=== PATIENT | female | born 1995 | race Caucasian/White ===

== ENCOUNTER 2018-02-03 06:35 | Inpatient (IN) | payer MEDICAID ==
[2018-02-03] MEDS ORDERED: OXYTOCIN 30 UNITS/LR 500 ML IV ×2 (08:00→12:03)
[2018-02-03] MEDS ORDERED: CEFAZOLIN 2 GM/50 ML (PMX) 50 ML IVPB (08:00)
[2018-02-03] MEDS ORDERED: CARBOPROST 250 MCG INJ IM (08:00)
[2018-02-03] MEDS ORDERED: METHYLERGONOVINE 0.2 MG INJ IM (08:00)
[2018-02-03] MEDS ORDERED: MISOPROSTOL 200 MCG TAB PR (08:00)
[2018-02-03] MEDS: LACTATED RINGER'S 1,000 ML IV ×4 (08:15→23:09)
[2018-02-03 08:40] LABS: ADD MAN DIFF? NO
[2018-02-03] MEDS ORDERED: TERBUTALINE 1 ML (08:41)
[2018-02-03 08:46] LABS: BASOPHIL # 0.1 10^3/ul (0.0-0.1); BASOPHILS % 0.5 % (0.0-2.0); EOSINOPHILS # 0.2 10^3/ul (0.0-0.5); EOSINOPHILS % 2.4 % (0.0-7.0); HEMATOCRIT 36.4 % (37.0-47.0); HEMOGLOBIN 11.9 g/dl (12.0-16.0); LYMPHOCYTES # 2.7 10^3/ul (0.8-2.9); LYMPHOCYTES % 26.6 % (15.0-51.0); MEAN CORPUSCULAR HEMOGLOBIN 29.6 pg (29.0-33.0); MEAN CORPUSCULAR HGB CONC 32.7 g/dl (32.0-37.0); MEAN CORPUSCULAR VOLUME 90.5 fl (82.0-101.0); MEAN PLATELET VOLUME 10.2 fl (7.4-10.4); MONOCYTE # 0.7 10^3/ul (0.3-0.9); MONOCYTES % 7.1 % (0.0-11.0); NEUTROPHIL # 6.4 10^3/ul (1.6-7.5); NEUTROPHILS % 63.1 % (39.0-77.0); PLATELET COUNT 279 10^3/UL (140-415); RED BLOOD COUNT 4.02 10^6/ul (4.20-5.40); RED CELL DISTRIBUTION WIDTH 12.5 % (11.5-14.5)
[2018-02-03 08:46] LABS: WHITE BLOOD COUNT 10.2 10^3/ul (4.8-10.8)
[2018-02-03 09:04] LABS: INR 0.93; PROTIME 12.5 Sec (11.9-14.9)
[2018-02-03 09:05] LABS: PARTIAL THROMBOPLASTIN TIME 25.9 Sec (23.0-35.0)
[2018-02-03] MEDS: CITRIC ACID/NA CITRATE 30 ML CUP PO (11:48)
[2018-02-03] MEDS ORDERED: METOCLOPRAMIDE 10 MG INJ (12:03)
[2018-02-03] MEDS ORDERED: morphine SULFATE/PF (10 MG/10 ML) INJ (12:03)
[2018-02-03] MEDS ORDERED: ONDANSETRON 4 MG INJ (12:03)
[2018-02-03] MEDS ORDERED: KETOROLAC 30 MG INJ (12:03)
[2018-02-03] MEDS ORDERED: MEPERIDINE 100 MG INJ (13:18)
[2018-02-03] MEDS ORDERED: morphine (1 MG/ML) 10ML SYRINGE IV ×3 (14:00)
[2018-02-03] MEDS ORDERED: morphine 2 MG INJ IV ×3 (14:00)
[2018-02-03] MEDS ORDERED: NALOXONE (0.4 MG/ML) INJ IV (14:00)
[2018-02-03] MEDS ORDERED: DIPHENHYDRAMINE 50 MG INJ IV ×2 (14:00)
[2018-02-03] MEDS ORDERED: ONDANSETRON 4 MG INJ IV ×2 (14:00)
[2018-02-03 15:38] LABS: RAPID PLASMA REAGIN NONREACTIVE (NR)
[2018-02-03] MEDS: KETOROLAC 30 MG INJ IV (15:51)
[2018-02-04] MEDS: LACTATED RINGER'S 1,000 ML IV ×2 (06:43→19:22)
[2018-02-04 08:17] LABS: ADD MAN DIFF? NO
[2018-02-04 08:18] LABS: BASOPHILS % 0.3 % (0.0-2.0); EOSINOPHILS # 0.2 10^3/ul (0.0-0.5); EOSINOPHILS % 1.7 % (0.0-7.0); HEMATOCRIT 30.4 % (37.0-47.0); HEMOGLOBIN 9.9 g/dl (12.0-16.0); LYMPHOCYTES # 2.3 10^3/ul (0.8-2.9); LYMPHOCYTES % 23.5 % (15.0-51.0); MEAN CORPUSCULAR HEMOGLOBIN 29.9 pg (29.0-33.0); MEAN CORPUSCULAR HGB CONC 32.6 g/dl (32.0-37.0); MEAN CORPUSCULAR VOLUME 91.8 fl (82.0-101.0); MONOCYTE # 0.7 10^3/ul (0.3-0.9); MONOCYTES % 6.9 % (0.0-11.0); NEUTROPHIL # 6.6 10^3/ul (1.6-7.5); NEUTROPHILS % 67.1 % (39.0-77.0); PLATELET COUNT 230 10^3/UL (140-415); RED BLOOD COUNT 3.31 10^6/ul (4.20-5.40); RED CELL DISTRIBUTION WIDTH 12.5 % (11.5-14.5)
[2018-02-04 08:18] LABS: WHITE BLOOD COUNT 9.9 10^3/ul (4.8-10.8)
[2018-02-04] MEDS: KETOROLAC 30 MG INJ IV (10:14)
[2018-02-04] MEDS ORDERED: OXYCODONE/ACETAMINOPHEN (5/325) TAB PO (14:00)
[2018-02-04] MEDS: IBUPROFEN 800 MG TAB PO ×2 (17:49→23:25)
[2018-02-05] MEDS: IBUPROFEN 800 MG TAB PO ×4 (05:40→23:49)
[2018-02-05] MEDS: LACTATED RINGER'S 1,000 ML IV (07:21)
[2018-02-05] MEDS: OXYCODONE/ACETAMINOPHEN (5/325) TAB PO (15:42)
[2018-02-06] MEDS: MAGNESIUM HYDROXIDE 30ML CUP PO (05:38)
[2018-02-06] MEDS: IBUPROFEN 800 MG TAB PO ×3 (05:38→17:56)
== END 2018-02-06 19:05 | disposition home or self-care (01) | DRG 788 ==
LOC: OBT 06:35 → L-D 06:35 → OBT 08:05 → L-D 08:07 → PP1 17:31
PROVIDERS: Obstetrics & Gynecology
PROC: 10D00Z1 Extraction of Products of Conception, Low, Open Approach (ICD-10-PCS; principal; 2018-02-03)
DX: O34.211 Maternal care for low transverse scar from previous cesarean delivery (principal); O69.81X0 Labor and delivery complicated by cord around neck, without compression, not applicable or unspecified; Z3A.38 38 weeks gestation of pregnancy; Z37.0 Single live birth
CPT/HCPCS: 85025; 85610; 85730; 86592; 86850; 86900; 86901; 99464

== ENCOUNTER 2018-02-09 10:58 | Emergency (ER) | payer MEDICAID ==
[2018-02-09] MEDS: CEFTRIAXONE 1 GM/50 ML (PMX) 50 ML IVPB (11:36)
[2018-02-09] MEDS: SOD CHLORIDE 0.9% 500 ML IV (11:36)
[2018-02-09 11:48] LABS: ADD MAN DIFF? NO
[2018-02-09 11:56] LABS: WHITE BLOOD COUNT 12.9 10^3/ul (4.8-10.8)
[2018-02-09 11:56] LABS: BASOPHILS % 0.2 % (0.0-2.0); EOSINOPHILS # 0.1 10^3/ul (0.0-0.5); EOSINOPHILS % 0.7 % (0.0-7.0); HEMOGLOBIN 11.8 g/dl (12.0-16.0); LYMPHOCYTES # 1.1 10^3/ul (0.8-2.9); LYMPHOCYTES % 8.4 % (15.0-51.0); MEAN CORPUSCULAR HEMOGLOBIN 29.7 pg (29.0-33.0); MEAN CORPUSCULAR HGB CONC 32.8 g/dl (32.0-37.0); MEAN CORPUSCULAR VOLUME 90.7 fl (82.0-101.0); MEAN PLATELET VOLUME 9.2 fl (7.4-10.4); MONOCYTES % 7.7 % (0.0-11.0); NEUTROPHIL # 10.6 10^3/ul (1.6-7.5); NEUTROPHILS % 82.5 % (39.0-77.0); PLATELET COUNT 276 10^3/UL (140-415); RED BLOOD COUNT 3.97 10^6/ul (4.20-5.40); RED CELL DISTRIBUTION WIDTH 12.3 % (11.5-14.5)
[2018-02-09 12:08] LABS: ADD UMIC YES; UR ASCORBIC ACID NEGATIVE (NEGATIVE); UR BILIRUBIN (Dip) NEGATIVE (NEGATIVE); UR BLOOD (Dip) 3+ mg/dL (NEGATIVE); UR CLARITY SLIGHTLY CLOUDY (CLEAR); UR COLOR YELLOW (YELLOW); UR GLUCOSE (Dip) NEGATIVE (NEGATIVE); UR KETONES (Dip) NEGATIVE (NEGATIVE); UR LEUKOCYTE ESTERASE (Dip) 1+ Leu/ul (NEGATIVE); UR MUCUS FEW /HPF (NONE SEEN); UR NITRITE (Dip) NEGATIVE (NEGATIVE); UR NONSQUAMOUS EPITHELIAL CELL 1 /HPF (NONE SEEN); UR RBC 3 /HPF (0-5); UR SPECIFIC GRAVITY (Dip) 1.018 (1.003-1.030); UR SQUAMOUS EPITHELIAL CELL FEW /HPF (FEW); UR TOTAL PROTEIN (Dip) 1+ mg/dl (NEGATIVE); UR UROBILINOGEN (Dip) NEGATIVE (NEGATIVE); UR WBC 34 /HPF (0-5)
[2018-02-09 12:15] LABS: ANION GAP 8 (5-13); BLOOD UREA NITROGEN 8 mg/dl (7-20); CARBON DIOXIDE 29 mmol/L (21-31); CHLORIDE 103 mmol/L (97-110); CREATININE 0.51 mg/dl (0.44-1.00); Estimated GFR > 60 mL/min (>60); GLUCOSE 100 mg/dl (70-220); POTASSIUM 4.2 mmol/L (3.5-5.1); SODIUM 140 mmol/L (135-144)
[2018-02-09] MEDS: ACETAMINOPHEN 500 MG TAB PO (13:44)
[2018-02-09] MEDS: IBUPROFEN 200 MG TAB PO (13:45)
== END 2018-02-09 14:49 | disposition home or self-care (01) ==
LOC: FTE 10:58
DX: T81.41XA Infection following a procedure, superficial incisional surgical site, initial encounter (principal); Y76.3 Surgical instruments, materials and obstetric and gynecological devices (including sutures) associated with adverse incidents; Z98.890 Other specified postprocedural states
CPT/HCPCS: 36415; 76536; 80048; 81001; 85025; 96374; 99285-25